=== PATIENT | male | born 1980 | race Caucasian/White ===

== ENCOUNTER 2017-02-09 13:55 | Emergency (ER) ==
[2017-02-09 14:04] VITALS: BP 170/108; TEMP 100.2; BMI 28.1
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
== END 2017-02-09 15:42 | disposition home or self-care (01) ==
LOC: ED 13:55
DX: M25.511 Pain in right shoulder (principal); M54.2 Cervicalgia; R07.89 Other chest pain; M54.6 Pain in thoracic spine; F17.210 Nicotine dependence, cigarettes, uncomplicated; V86.99XA Unspecified occupant of other special all-terrain or other off-road motor vehicle injured in nontraffic accident, initial encounter
CPT/HCPCS: 99283